=== PATIENT | female | born 1965 | race African-American/Black ===

== ENCOUNTER 2024-03-07 19:39 | Inpatient (IN) | payer OTHER ==
[2024-03-07 21:45] VITALS: BMI 22.3
[2024-03-07] MEDS ORDERED: ACETAMINOPHEN 325 MG TABLET (FP) PO PRN (22:40)
[2024-03-07] MEDS ORDERED: POLYETHYLENE GLYCOL (HEALTHYLAX) 3350 17 GM PACKET PO PRN (22:40)
[2024-03-07] MEDS ORDERED: BISMUTH SUBSALICYLATE 524 MG/30 ML PO PRN (22:40)
[2024-03-07] MEDS ORDERED: NALOXONE HCL (KLOXXADO) 8 MG SPRAY NS PRN (22:40)
[2024-03-07] MEDS ORDERED: LOPERAMIDE HCL 2 MG CAPSULE PO PRN (22:40)
[2024-03-07] MEDS ORDERED: MAGNESIUM HYDROX 2400MG/30ML ORAL SUSPENSION 30 ML CUP PO PRN (22:40)
[2024-03-07] MEDS ORDERED: MAG HYDROX/AL HYDROX/SIMETH 30 ML UNIT-DOSE CUP PO PRN (22:40)
[2024-03-07] MEDS ORDERED: BENZONATATE 200 MG CAPSULE PO PRN (22:40)
[2024-03-07] MEDS ORDERED: IBUPROFEN 400 MG TABLET (FP) PO PRN (22:40)
[2024-03-07] MEDS ORDERED: guaiFENesin 600 MG TABLET.ER (FP) PO PRN (22:40)
[2024-03-07] MEDS ORDERED: BENZOCAINE/MENTHOL (CHLORASEPTIC ) LOZENGE MM PRN (22:40)
[2024-03-07] MEDS ORDERED: ONDANSETRON *ODT* 4 MG TABLET SL PRN (22:40)
[2024-03-07] MEDS ORDERED: NALOXONE HCL 0.4 MG/ML VIAL IM PRN (22:40)
[2024-03-08] MEDS ORDERED: NICOTINE POLACRILEX 4 MG GUM BUC ONE (09:36)
[2024-03-08] MEDS: NICOTINE POLACRILEX 4 MG GUM BUC PRN (09:37)
[2024-03-08] MEDS: NICOTINE 14 MG/24 HOURS TOPICAL PATCH TD SCH (09:56)
[2024-03-08] MEDS ORDERED: PRENATAL VITAMINS W/ FOLIC ACID TABLET (FP) PO ONE (09:57)
[2024-03-08] MEDS: PRENATAL VITAMINS W/ FOLIC ACID TABLET (FP) PO SCH (10:00)
[2024-03-08] MEDS: hydrOXYzine PAMOATE 25 MG CAPSULE (FP) PO PRN (10:44)
[2024-03-08] MEDS: DICYCLOMINE HCL 10 MG CAPSULE PO PRN (10:44)
[2024-03-08] MEDS ORDERED: cloNIDine HCL 0.1 MG TABLET PO PRN (11:31)
[2024-03-08] MEDS ORDERED: chlordiazePOXIDE HCL 25 MG CAPSULE PO PRN (11:32)
[2024-03-08] MEDS: methaDONE HCL 10 MG TABLET (FOR DETOX USE ONLY) PO ONE (11:36)
[2024-03-08 12:19] LABS: CHLORIDE 111 mmol/L (98-107); POTASSIUM 3.9 mmol/L (3.5-5.1); SODIUM 141 mmol/L (136-145)
[2024-03-08 12:23] LABS: HEMATOCRIT 34.8 % (32.4-45.2); MCH 29.8 pg (25.7-33.7); MCHC 34.6 g/dl (32.0-36.0); MEAN CELL VOLUME 86.3 fl (80-96); MEAN PLT VOLUME 8.9 fl (7.5-11.1); PLATELET COUNT 238 10^3/uL (134-434); RBC 4.04 M/mm3 (3.60-5.2); WHITE BLOOD COUNT 3.5 K/mm3 (4.0-10.0)
[2024-03-08 12:27] LABS: BLOOD UREA NITROGEN 12.1 mg/dL (7-18); GLUCOSE,RANDOM 120 mg/dL (74-106); SGPT/ALT 21 U/L (13-61)
[2024-03-08 12:28] LABS: ALBUMIN 3.6 g/dl (3.4-5.0); CREATININE 0.8 mg/dL (0.55-1.3)
[2024-03-08 12:29] LABS: BILIRUBIN,TOTAL 0.8 mg/dL (0.2-1); TOT PROT 6.5 g/dl (6.4-8.2)
[2024-03-08 12:30] LABS: ALK PHOS 66 U/L (45-117); ANION GAP 3 mmol/L (4-13); CALCIUM 8.7 mg/dL (8.5-10.1); CO2 26 mmol/L (21-32); SGOT/AST 15 U/L (15-37)
[2024-03-08] MEDS: chlordiazePOXIDE HCL 25 MG CAPSULE PO SCH (17:26)
[2024-03-08] MEDS: IBUPROFEN 600 MG TABLET (FP) PO PRN (17:27)
[2024-03-08] MEDS: THIAMINE 100 MG TABLET PO SCH (22:15)
[2024-03-08] MEDS: MELATONIN 5 MG TABLETS PO SCH (22:15)
[2024-03-09] MEDS: chlordiazePOXIDE HCL 25 MG CAPSULE PO SCH (05:57)
[2024-03-09] MEDS ORDERED: ARIPiprazole 5 MG TABLET PO SCH (10:00)
[2024-03-09] MEDS ORDERED: methaDONE HCL 10 MG TABLET PO ONE (15:00)
[2024-03-10] MEDS: chlordiazePOXIDE HCL 10 MG CAPSULE PO SCH (05:38)
[2024-03-10] MEDS ORDERED: methaDONE HCL 10 MG TABLET (FOR DETOX USE ONLY) PO ONE ×4 (10:00)
[2024-03-10] MEDS: methaDONE HCL 10 MG TABLET PO ONE (10:09)
[2024-03-11] MEDS: chlordiazePOXIDE HCL 10 MG CAPSULE PO SCH (05:37)
[2024-03-11] MEDS ORDERED: methaDONE HCL 10 MG TABLET (FOR DETOX USE ONLY) PO ONE ×2 (10:00)
[2024-03-11] MEDS ORDERED: methaDONE 40 MG, methaDONE 10 MG PO ONE (10:00)
[2024-03-11] MEDS: methaDONE HCL 10 MG TABLET PO ONE (10:12)
[2024-03-11] MEDS: SUVOREXANT 10 MG TABLET PO PRN (22:04)
[2024-03-11] MEDS: chlordiazePOXIDE HCL 10 MG CAPSULE PO PRN (22:05)
[2024-03-11] MEDS: ALBUTEROL SO4 HFA INHALER IH PRN (22:08)
[2024-03-12] MEDS: chlordiazePOXIDE HCL 10 MG CAPSULE PO ONE (05:29)
[2024-03-12] MEDS: methaDONE HCL 40 MG DISPERSABLE TABLET PO ONE (09:10)
[2024-03-12 09:23] VITALS: BP 108/75; PULSE 81; RESP 18; TEMP 97.6
[2024-03-12] MEDS ORDERED: methaDONE HCL 10 MG TABLET (FOR DETOX USE ONLY) PO ONE ×2 (10:00)
[2024-03-12] MEDS ORDERED: methaDONE HCL 10 MG TABLET PO ONE (10:00)
[2024-03-13] MEDS ORDERED: methaDONE 40 MG, methaDONE 20 MG PO ONE (06:00)
[2024-03-13] MEDS ORDERED: methaDONE 40 MG, methaDONE 10 MG PO ONE (10:00)
[2024-03-13] MEDS ORDERED: methaDONE HCL 40 MG DISPERSABLE TABLET PO ONE (10:00)
== END 2024-03-12 12:45 | disposition other institution (70) | DRG 897 ==
LOC: YASAS 19:39 → Y6N 22:54
PROVIDERS: ADMIT Allergy & Immunology; ATTEND Surgery
PROC: HZ2ZZZZ Detoxification Services for Substance Abuse Treatment (ICD-10-PCS; principal; 2024-03-07)
DX: F11.23 Opioid dependence with withdrawal (principal); F14.20 Cocaine dependence, uncomplicated; F10.230 Alcohol dependence with withdrawal, uncomplicated; F17.210 Nicotine dependence, cigarettes, uncomplicated; F25.9 Schizoaffective disorder, unspecified; F39 Unspecified mood [affective] disorder; F19.24 Other psychoactive substance dependence with psychoactive substance-induced mood disorder; J45.20 Mild intermittent asthma, uncomplicated; Z86.2 Personal history of diseases of the blood and blood-forming organs and certain disorders involving the immune mechanism
CPT/HCPCS: 36415; 80053; 80305; 80307; 81025; 85027; 86780; 87811; 93005; 93010

== ENCOUNTER 2024-03-12 12:26 | Inpatient (IN) | payer OTHER ==
[2024-03-12] MEDS ORDERED: NALOXONE HCL (KLOXXADO) 8 MG SPRAY NS PRN (13:31)
[2024-03-12] MEDS ORDERED: guaiFENesin 600 MG TABLET.ER (FP) PO PRN (13:31)
[2024-03-12] MEDS ORDERED: POLYETHYLENE GLYCOL (HEALTHYLAX) 3350 17 GM PACKET PO PRN (13:31)
[2024-03-12] MEDS ORDERED: MAGNESIUM HYDROX 2400MG/30ML ORAL SUSPENSION 30 ML CUP PO PRN (13:31)
[2024-03-12] MEDS ORDERED: NALOXONE HCL 0.4 MG/ML VIAL IM PRN (13:31)
[2024-03-12] MEDS ORDERED: LOPERAMIDE HCL 2 MG CAPSULE PO PRN (13:31)
[2024-03-12] MEDS ORDERED: BENZONATATE 200 MG CAPSULE PO PRN (13:31)
[2024-03-12] MEDS ORDERED: BENZOCAINE/MENTHOL (CHLORASEPTIC ) LOZENGE MM PRN (13:31)
[2024-03-12] MEDS: ACAMPROSATE CALCIUM 333 MG TABLET.DR PO SCH (15:08)
[2024-03-12] MEDS: IBUPROFEN 600 MG TABLET (FP) PO PRN (18:01)
[2024-03-12] MEDS: hydrOXYzine PAMOATE 25 MG CAPSULE (FP) PO PRN (21:59)
[2024-03-12] MEDS: MELATONIN 5 MG TABLETS PO SCH (21:59)
[2024-03-12] MEDS: THIAMINE 100 MG TABLET PO SCH (21:59)
[2024-03-13] MEDS: methaDONE HCL 40 MG DISPERSABLE TABLET PO SCH (05:35)
[2024-03-13] MEDS: PRENATAL VITAMINS W/ FOLIC ACID TABLET (FP) PO SCH (09:22)
[2024-03-13] MEDS: ARIPiprazole 5 MG TABLET PO SCH (09:22)
[2024-03-13] MEDS: NICOTINE 14 MG/24 HOURS TOPICAL PATCH TD SCH (09:22)
[2024-03-13] MEDS: ALBUTEROL SO4 HFA INHALER IH PRN (09:31)
[2024-03-13] MEDS: GABAPENTIN 100 MG CAPSULE PO SCH (12:22)
[2024-03-13] MEDS: LIDOCAINE 4% PATCH TP SCH (16:49)
[2024-03-13] MEDS: LIDOCAINE PATCH REMOVAL MC SCH (21:17)
[2024-03-14] MEDS: BUDESONIDE/FORMETEROL FUMARATE 80/4.5 mcg INHALER IH SCH (14:09)
[2024-03-14] MEDS: NICOTINE POLACRILEX 2 MG GUM BUC PRN (16:50)
[2024-03-15] MEDS: MAG HYDROX/AL HYDROX/SIMETH 30 ML UNIT-DOSE CUP PO PRN (16:30)
[2024-03-16] MEDS: METHOCARBAMOL 500 MG TABLET PO PRN (13:25)
[2024-03-17] MEDS ORDERED: DOCUSATE SODIUM 100 MG CAPSULE (FP) PO PRN (15:18)
[2024-03-17] MEDS ORDERED: SENNOSIDES 8.6MG TABLET (FP) PO PRN (15:19)
[2024-03-17] MEDS: PANTOPRAZOLE 20 MG TABLET PO SCH (16:48)
[2024-03-17] MEDS: BACLOFEN 10 MG TABLET (FP) PO SCH (21:09)
[2024-03-18] MEDS: methaDONE HCL 10 MG TABLET PO SCH (05:33)
[2024-03-18] MEDS: BACLOFEN 10 MG TABLET (FP) PO SCH (21:47)
[2024-03-18] MEDS: SUVOREXANT 10 MG TABLET PO PRN (21:47)
[2024-03-19] MEDS: BACLOFEN 10 MG TABLET (FP) PO SCH (13:42)
[2024-03-19] MEDS: METHYL SALICYLATE/MENTHOL OINT 30 GM TUBE TP PRN (13:44)
[2024-03-20] MEDS: IBUPROFEN 400 MG TABLET (FP) PO PRN (05:04)
[2024-03-20] MEDS ORDERED: BENZONATATE 200 MG CAPSULE PO PRN (11:13)
[2024-03-20] MEDS ORDERED: BISMUTH SUBSALICYLATE 262 MG/15 ML BTL PO PRN (11:13)
[2024-03-20] MEDS ORDERED: guaiFENesin 600 MG TABLET.ER (FP) PO PRN (11:13)
[2024-03-20] MEDS ORDERED: DICYCLOMINE HCL 10 MG CAPSULE PO PRN (11:13)
[2024-03-20] MEDS ORDERED: methaDONE HCL 10 MG TABLET PO SCH (18:00)
[2024-03-20] MEDS: MELATONIN 5 MG TABLETS PO SCH (21:21)
[2024-03-20] MEDS: ONDANSETRON *ODT* 4 MG TABLET SL PRN (23:04)
[2024-03-21] MEDS: ACETAMINOPHEN 325 MG TABLET (FP) PO PRN (03:21)
[2024-03-21] MEDS: methaDONE HCL 10 MG TABLET PO SCH (17:59)
[2024-03-21] MEDS: GABAPENTIN 100 MG CAPSULE PO SCH (21:54)
[2024-03-21] MEDS: SUVOREXANT 10 MG TABLET PO PRN (21:55)
[2024-03-22 06:53] VITALS: RESP 18; TEMP 96.1
[2024-03-22 09:12] VITALS: BP 103/65; PULSE 74
[2024-03-22] MEDS: ARIPiprazole 10 MG TABLET PO SCH (10:11)
== END 2024-03-22 22:46 | disposition left against medical advice (07) | DRG 894 ==
LOC: YASAS 12:26 → Y3NR 12:27 → Y5N 03-13 12:07
PROVIDERS: ADMIT Allergy & Immunology; ATTEND Psychiatry & Neurology Pain Medicine
PROC: HZ42ZZZ Group Counseling for Substance Abuse Treatment, Cognitive-Behavioral (ICD-10-PCS; principal; 2024-03-12)
DX: F11.20 Opioid dependence, uncomplicated (principal); F14.20 Cocaine dependence, uncomplicated; F19.282 Other psychoactive substance dependence with psychoactive substance-induced sleep disorder; F10.20 Alcohol dependence, uncomplicated; F17.210 Nicotine dependence, cigarettes, uncomplicated; F20.9 Schizophrenia, unspecified; F31.9 Bipolar disorder, unspecified; F39 Unspecified mood [affective] disorder; F41.9 Anxiety disorder, unspecified; K59.00 Constipation, unspecified; M25.522 Pain in left elbow; R04.0 Epistaxis
CPT/HCPCS: 36415; 73030-TC-LT-FY; 82947; 82962; 87811; J0475; Q0162